=== PATIENT | female | born 1950 | race Caucasian/White ===

== ENCOUNTER 2018-10-21 10:04 | Day surgery (SDC) | payer MEDICARE ==
[2018-10-20 11:14] VITALS: BMI 39.5
[~2018-10-21 10:04] MED LIST: EPINEPHrine 0.3 MG in Ophthalmic Irrigation Solution 500 ML IVP SCH; Fentanyl 100 MCG/2 ML VIAL ONE; Midazolam HCl 2 mg/2 ml Vial ONE
[2018-10-21] MEDS ORDERED: Phenylephrine 2.5% Ophth Soln 5 ML BOT ONE (10:16)
[2018-10-21] MEDS ORDERED: Cyclopentolate 1% Opth Drop 2 ML BOT ONE (10:16)
--- NOTE | 2018-10-21 18:23 | OP ---
DATE OF PROCEDURE: 10/21/2018 PRINCIPAL PREOPERATIVE DIAGNOSIS: Epiretinal membrane, left eye. POSTOPERATIVE DIAGNOSIS: Epiretinal membrane, left eye. PROCEDURES PERFORMED: 1. 25-gauge pars plana vitrectomy, left eye. 2. Epiretinal membrane/internal limiting membrane removal, left eye. ESTIMATED BLOOD LOSS: None. SPECIMENS REMOVED: None. COMPLICATIONS: None. ANESTHESIA: MAC with retrobulbar block. DESCRIPTION OF PROCEDURE: The patient was identified in the preoperative holding area, where the correct eye being the left eye was marked for surgery. The patient was taken to the operating room, where MAC anesthesia was induced. The left eye was prepped and draped in the usual sterile ophthalmic fashion for surgery. A wire lid speculum was placed. A standard 25-gauge pars plana vitrectomy platform was fashioned with trocars placed approximately 4 mm posterior to the limbus. The infusion was noted to be within the vitreous cavity prior to being turned on to an infusion pressure of 30 mmHg. The light pipe Micro vitrector was introduced into the eye under visualization with a [employer] viewing system. A careful core and peripheral shave vitrectomies were performed. Following vitrectomy, ICG dye was used to stain the internal limiting membrane. Using the [employer] ILM Forceps, the epiretinal membrane/internal limiting membrane complex was removed in a circumferential fashion about the fovea. The peel extended approximately 2 disc diameters in radius from the fovea. Following peeling, the Micro vitrector was re-introduced into the eye to remove any residual vitreous debris. A 360-degree scleral depressed exam of the periphery revealed no defects. The cannulas were sequentially removed, and all sclerotomies were noted to be watertight. Subconjunctival Ancef and Kenalog were injected. The wire lid speculum was removed followed by application of Tobradex ophthalmic ointment and light patch and shield. The patient tolerated the procedure well and was taken to the outpatient recovery area in good condition. Job ID: [id number]
== END 2018-10-21 13:40 | disposition home or self-care (01) ==
LOC: SDC 10:04
PROVIDERS: ATTEND Ophthalmology Retina Specialist
PROC: 08T53ZZ Resection of Left Vitreous, Percutaneous Approach (ICD-10-PCS; principal; 2018-10-21)
PROC: 08NF3ZZ Release Left Retina, Percutaneous Approach (ICD-10-PCS; 2018-10-21)
DX: H35.372 Puckering of macula, left eye (principal); I10 Essential (primary) hypertension
CPT/HCPCS: J0171; J2250; J3010